=== PATIENT | female | born 1990 | race Caucasian/White ===

== ENCOUNTER 2020-12-25 04:48 | Emergency (ER) | payer OTHER, SELFPAY ==
[2020-12-25 05:22] VITALS: BP 120/74; PULSE 80; O2SAT 98
== END 2020-12-25 06:10 | disposition left against medical advice (07) ==
PROVIDERS: Emergency Provider Emergency Medicine
DX: R52 Pain, unspecified (principal)

== ENCOUNTER 2022-02-23 08:14 | Inpatient (IN) | payer OTHER, SELFPAY ==
--- NOTE | ~2022-02-23 | CT_ITS ---
EXAMINATION: CT ABDOMEN AND PELVIS WITHOUT CONTRAST CLINICAL INFORMATION: Abdominal pain. COMPARISON: CT scans dating between December 14, 2017 and August 28, 2017. TECHNIQUE: Multidetector volumetric imaging was performed from the superior aspect of the liver through the pubic symphysis. Sagittal and coronal reformatted images were obtained on the technologist's workstation. This CT examination was performed using dose optimization techniques as appropriate, variously including the following: *Automated exposure control *Adjustment of mA and/or kV according to patient size (this includes techniques or standardized protocols for targeted exams where dose is matched to indication/reason for exam; i.e. extremities or head) *Use of iterative reconstruction technique DLP: 331 mGy-cm FINDINGS: LUNG BASES: No change in 4 mm or less bilateral lower lobe lung nodules. LIVER, GALLBLADDER, AND BILIARY TREE: Mild hepatomegaly measuring up to approximately 19.5 cm in sagittal dimension, not significantly changed compared with 4 years prior. The liver appears unremarkable in shape and attenuation. No focal hepatic lesion or biliary ductal dilatation is appreciated. Unremarkable appearance of the gallbladder. PANCREAS: Mildly dilated pancreatic duct to the level of the pancreatic head, measuring up to approximately 0.5 cm in diameter. In 2018 it measured approximately 0.4 cm. No stone or mass directly visualized in the pancreatic head. SPLEEN: Unremarkable. ADRENAL GLANDS: Unremarkable. KIDNEYS AND URETERS: Innumerable, approximately 3 mm or less calcifications in the regions of the renal collecting system/papillary, bilaterally. Question mild fullness of the left ureter, equivocal, similar to slightly improved compared with 4 years prior. No desirae hydronephrosis on either side. No evidence of hydroureter on the right. 3 mm, ovoid calcification roughly in the region of the left UVJ. However, this appears unchanged compared with 4 years prior. BLADDER: Unremarkable. GASTROINTESTINAL TRACT: Long segment, concentric thickening involving the distal transverse colon, descending colon, and rectum. Mild induration of surrounding fat. Suspect concentric thickening involving the distal ileum as well. These findings appear worse compared with prior. ABDOMINAL WALL: No significant hernia is appreciated. LYMPH NODES: Normal. VASCULAR: Unremarkable. PELVIC VISCERA: Looped metallic density in the perineal region. Ovarian follicles, left more than right. OSSEOUS STRUCTURES: Unremarkable. CT/CT abdomen pelvis wo con IMPRESSION: Long segment, concentric thickening involving the distal transverse colon, descending colon, and rectum. Suspect concentric thickening involving the distal ileum. Mild induration of surrounding fat. These findings appear worse compared with December 14, 2017. Differential diagnosis includes, but is not limited to, active Crohn's disease. Innumerable, approximately 3 mm or less calcifications in the regions of the renal collecting system/papillary, bilaterally. Question mild fullness of the left ureter, equivocal, similar to slightly improved compared with 4 years prior. 3 mm, ovoid calcification roughly in the region of the left UVJ. However, this appears unchanged compared with 4 years prior, and is therefore felt more likely to represent a phlebolith rather than distal ureteral stone, although the latter cannot be excluded entirely. Looped metallic density in the perineal region. Recommend clinical correlation. This should be amenable to direct visualization.
--- NOTE | 2022-02-23 08:22 | ED.GENADULT ---
HPI - General Adult General Chief complaint: General Medical Stated complaint: BACK PAIN H/O KIDNEY STONES PER EMS Time Seen by Provider: 02/23/22 08:22 Source: patient Mode of arrival: ambulatory Limitations: no limitations History of Present Illness HPI narrative: Patient is a 31 year old female presenting to the emergency department today with left sided flank pain and abdominal pain. Patient states that she has a history of Crohn's disease and kidney stones. Patient states that over the last couple of days, she has had extensive pain that is much worse than usual. Patient states that on February 07, she had a rectal drain placed for a perirectal abscess at [facility] and they started her on Augmentin. Patient denies any dizziness, lightheadedness, nausea, vomiting, fever, chills, blurry vision, double vision, loss of vision, chest pain, difficulty breathing, shortness of breath, back pain, night sweats, pain with urination, increased urinary frequency, increased urinary urgency, blood in her urine or stool, syncope or a near syncopal episode, recent trauma or falls, bowel incontinence, bladder incontinence, bowel retention, bladder retention, or any other complaints at this time. Onset (ago): day(s) Location: abdomen Radiation: flank (left) Severity: mild Severity scale (1-10): 4 Quality: stabbing and constant Pain Consistency: constant Relieving factors: none Exacerbating factors: none Associated symptoms: denies other symptoms Treatments prior to arrival: none Related Data Home Medications Medication Instructions Recorded Confirmed amoxicillin 875 mg-potassium 1 tab PO BID 02/23/22 02/23/22 clavulanate 125 mg tablet calcium carbonate 500 mg-vitamin 6 tab PO DAILY 02/23/22 02/23/22 D3 10 mcg (400 unit) tablet (Calcium 500 + D) docusate sodium 100 mg tablet 100 mg PO DAILY PRN Constipation 02/23/22 02/23/22 levonorgestrel-ethinyl estradiol 1 tab PO DAILY 02/23/22 02/23/22 0.1 mg-20 mcg tablet (Sronyx) oxycodone 5 mg tablet 1 tab PO Q4-6H PRN pain 02/23/22 02/23/22 pantoprazole 40 mg tablet,delayed 1 tab PO DAILY 02/23/22 02/23/22 release prednisone 20 mg tablet 2 tab PO DAILY 02/23/22 02/23/22 ustekinumab 90 mg/mL subcutaneous 90 mg subcut Q4W 02/23/22 02/23/22 syringe (Stelara) Allergies Allergy/AdvReac Type Severity Reaction Status Date / Time NSAIDS (Non-Steroidal AdvReac Unknown Verified 02/23/22 08:23 Anti-Inflamma Review of Systems Constitutional: Constitutional: Reports no additional constitutional complaints, Denies chills, Denies fever(s) and Denies night sweats Eyes: Eyes: Reports no additional eye complaints, Denies blurry vision, Denies change in vision, Denies diplopia, Denies eye discharge, Denies loss of vision and Denies eye pain ENT: Denies dizziness Cardiovascular: Cardiovascular: Reports no additional cardiovascular complaints, Denies chest pain, Denies lightheadedness, Denies Loss of Consciousness and Denies dyspnea Respiratory: Respiratory: Reports no additional respiratory complaints and Denies dyspnea Gastrointestinal: Gastrointestinal: Reports no additional gastrointestinal complaints, Reports abdominal pain, Denies melena, Denies hematochezia, Denies change in bowel habits and Denies change in stool character Comments: left sided flank pain Genitourinary: Genitourinary: Denies hematuria, Denies urinary frequency, Denies dysuria, Denies urinary incontinence, Denies urinary hesitancy and Denies urinary urgency Musculoskeletal: Musculoskeletal: Reports no additional musculoskeletal complaints, Denies numbness and Denies tingling Neurologic: Denies dizziness, Denies loss of vision, Denies numbness and Denies tingling Psychiatric: Psychiatric: Reports no additional psychiatric complaints Endocrine: Endocrine: Reports no additional endocrine complaints Hematologic/Lymphatic: Hematologic/Lymphatic: Reports no additional hematologic/lymphatic complaints Allergic/Immunologic: Allergic/Immunologic: Reports no additional allergic/immunologic complaints [facility] Past Medical History Attestation statement: The following information was validated with the patient. Source: old records reviewed Medical History Crohn's disease Social History Social History Substance Use Type: Marijuana Advance Directives: No Advance Directives Information Provided: No Physical Exam ED Vital Signs: Vital Signs - 24 hr 02/23/22 08:24 02/23/22 11:32 06/22/22 12:09 Temperature 98.1 F Pulse Rate 73 57 65 Respiratory Rate 16 18 18 Blood Pressure 92/57 L 101/56 L 106/67 Pulse Oximetry 96 97 96 Oxygen Delivery Method Room Air Room Air Room Air BMI result Body Mass Index 18.3 Const General: cooperative, no acute distress, alert and awake Nutritional Appearance: well nourished Orientation/consciousness: patient oriented x3 Limitations: no limitations HENMT Head: Yes normal to inspection and Yes atraumatic Ears: hearing grossly normal bilaterally and external ears normal General nose exam: Normal external nose present, no nasal discharge noted and no epistaxis Face and sinus: Yes normal facial exam, No abrasion and No laceration Mouth: Normal oral and palatal mucosa present, no drooling and no muffled voice Eyes General: appearance normal, both eyes and all related structures Periorbital: periorbital findings normal Eyelids: Yes eyelids normal Conjunctivae: conjunctivae normal Pupils: Equal, round and reactive pupils present EOM: EOMs intact bilaterally Neck Neck: Yes normal visual inspection, Yes full ROM and Yes no lymphadenopathy Chest Chest palpation & inspection: normal inspection of the chest Resp Effort & Inspection: normal respiratory effort and able to speak in complete sentences Auscultation: clear to auscultation bilaterally Cardio Rate: regular rate Rhythm: regular rhythm GI Inspection: Yes normal to inspection Palpation (GI): Soft to palpation, not firm, nontender, no guarding and not rigid General: Yes CVA tenderness (left sided) Back/Spine/Pelvis Back: CVA tenderness (left sided) Cervical Spine: normal cervical lordosis and cervical ROM normal Thoracic/Lumbar Spine: thoracic and lumbar spine normal to inspection and thoraco-lumbar ROM normal Neuro General: patient oriented x3 and moves all extremities Cranial nerves: Yes Equal, round and reactive pupils present Cognition (Neuro): normal cognition Motor exam (neuro): 5/5 motor strength present throughout Sensory Exam: Normal double simultaneous stimulation for sensation Coordination: [id number] test normal Extrem General: Yes normal to inspection, Yes full ROM and Yes capillary refill normal Psych Appearance: grossly normal Mental Status: mental status grossly normal Affect: normal affect Attitude: cooperative Thought process: Normal thought process present Thought content: Normal thought content present Insight: Good insight present (Psych) Medical Decision Making MDM Narrative Medical decision making narrative: Patient is a 31 year old female presenting to the emergency department today with left sided flank pain and abdominal pain. Patient's physical exam showed CVA tenderness to the left however, the patient described the pain as radiating back into her abdomen. Patient's blood work showed an elevated white blood cell count at 18.3. Patient's urine showed an acute urinary tract infection. Patient's abdominal CT showed signs of Crohn's disease and scattered renal calculi, both unchanged from previous examinations. I explained my physical exam findings as well as all test results to the patient. I answered all questions asked by the patient. Patient's clinical presentation is most consistent with an acute pyelonephritis vs. colitis / c.diff. Patient received IV Morphine, IV Dilaudid, IV Zofran, IV Flagyl, IV levofloxacin, and IV fluids. Patient's clinical picture was not consistent with sepsis while she was under my care in the emergency department, the patient's lactic acid was normal and at no point was she tachycardic. I spoke to Dr. Trimble who agreed to hospital admission and requested that I place a consult to GI order to expedite that process. Patient verbalized agreement and understanding with this treatment plan and admission. Differential Diagnosis Differential Diagnosis: Colitis, C. diff, pyelonpehritis Medical Records Medical records reviewed: Yes I reviewed the patient's medical records. Lab Data Lab results reviewed: Yes I reviewed the patient's lab results. Result diagrams: 02/23/22 09:06 02/23/22 09:07 Labs: Lab Results 02/23/22 02/23/22 02/23/22 Range/Units 09:06 09:06 09:07 WBC 18.3 H (4.8-10.8) X10*3/uL RBC 4.29 (4.20-5.50) X10*6/uL Hgb 10.8 L (12.0-16.0) g/dl Hct 34.6 L (37.0-47.0) % MCV 80.7 (80.0-98.0) fL MCH 25.2 L (27.0-33.0) pg MCHC 31.2 (31.0-35.0) g/dl RDW 15.1 (11.0-16.0) % Plt Count 454 H (160-400) X10*3/uL MPV 8.4 L (9.4-12.3) fL Immature Gran % (Auto) 1.3 H (0.0-0.4) % Neut % (Auto) 64.9 (45-73) % Lymph % (Auto) 21.7 (20-40) % [place] % (Auto) 10.5 (2-11) % Eos % (Auto) 1.3 (0-4) % Baso % (Auto) 0.3 (0-2) % Lymph # (Auto) 4.0 (1.2-4.9) X10*3/uL Anson # (Auto) 1.9 H (0.1-1.2) X10*3/uL Eos # (Auto) 0.2 (0.0-0.4) X10*3/uL Baso # (Auto) 0.1 (0.0-0.2) X10*3/uL Abs Immat Gran (auto) 0.23 H (0.00-0.03) X10*3/uL Absolute Neuts (auto) 11.9 H (2.0-8.3) x10*3/uL Absolute Nucleated RBC 0.000 (0.0-0.012) X10*3/uL Nucleated RBC % (auto) 0.0 (0.0-0.2) /100WBC Smear Tech's Comments VERIFIED Sodium 138 (135-145) mmol/L Potassium 4.0 (3.3-5.1) mmol/L Chloride 103 (96-108) mmol/L Carbon Dioxide 27 (22-29) mmol/L Anion Gap 12 (12-20) BUN 21 H (9-16) mg/dL Creatinine 0.70 (0.5-1.4) mg/dL Estim Creat Clear Calc 98.4 Estimated GFR > 60 Random Glucose 91 (60-115) mg/dL Lactic Acid (0.5-2.0) mmol/L Calcium 8.8 (8.4-10.2) mg/dL Magnesium 1.8 (1.6-2.6) mg/dL Total Bilirubin 0.2 (0.0-1.0) mg/dL AST 8 (5-31) U/L ALT 7 (0-31) U/L Alkaline Phosphatase 68 (39-117) U/L Total Protein 6.4 L (6.5-8.0) g/dL Albumin 3.3 L (3.5-5.0) g/dL Beta HCG, Quant < 2 mIU/mL Urine Color Urine Appearance Urine pH (5.0-8.0) Ur Specific [place] (1.005-1.025) Urine Protein (NEG-TRACE) MG/DL Urine Glucose (UA) (NEG) MG/DL Urine Ketones (NEG) MG/DL Urine Blood (NEG) Urine Nitrite (NEG) Ur Leukocyte Esterase (NEG) Urine RBC (0) /HPF Urine WBC (0-4) /HPF Ur Squamous Epith Cells /LPF Urine Bacteria /LPF Urine Mucus /LPF COVID-19 (PRIYANK) (Negative) COVID-19 Clin Com 02/23/22 02/23/22 02/23/22 Range/Units 11:29 12:07 12:47 WBC (4.8-10.8) X10*3/uL RBC (4.20-5.50) X10*6/uL Hgb (12.0-16.0) g/dl Hct (37.0-47.0) % MCV (80.0-98.0) fL MCH (27.0-33.0) pg MCHC (31.0-35.0) g/dl RDW (11.0-16.0) % Plt Count (160-400) X10*3/uL MPV (9.4-12.3) fL Immature Gran % (Auto) (0.0-0.4) % Neut % (Auto) (45-73) % Lymph % (Auto) (20-40) % Anson % (Auto) (2-11) % Eos % (Auto) (0-4) % Baso % (Auto) (0-2) % Lymph # (Auto) (1.2-4.9) X10*3/uL Anson # (Auto) (0.1-1.2) X10*3/uL Eos # (Auto) (0.0-0.4) X10*3/uL Baso # (Auto) (0.0-0.2) X10*3/uL Abs Immat Gran (auto) (0.00-0.03) X10*3/uL Absolute Neuts (auto) (2.0-8.3) x10*3/uL Absolute Nucleated RBC (0.0-0.012) X10*3/uL Nucleated RBC % (auto) (0.0-0.2) /100WBC Smear Tech's Comments Sodium (135-145) mmol/L Potassium (3.3-5.1) mmol/L Chloride (96-108) mmol/L Carbon Dioxide (22-29) mmol/L Anion Gap (12-20) BUN (9-16) mg/dL Creatinine (0.5-1.4) mg/dL Estim Creat Clear Calc Estimated GFR Random Glucose (60-115) mg/dL Lactic Acid 1.4 (0.5-2.0) mmol/L Calcium (8.4-10.2) mg/dL Magnesium (1.6-2.6) mg/dL Total Bilirubin (0.0-1.0) mg/dL AST (5-31) U/L ALT (0-31) U/L Alkaline Phosphatase (39-117) U/L Total Protein (6.5-8.0) g/dL Albumin (3.5-5.0) g/dL Beta HCG, Quant mIU/mL Urine Color YELLOW Urine Appearance CLEAR Urine pH 6.0 (5.0-8.0) Ur Specific [place] 1.020 (1.005-1.025) Urine Protein NEG (NEG-TRACE) MG/DL Urine Glucose (UA) NEG (NEG) MG/DL Urine Ketones NEG (NEG) MG/DL Urine Blood 3+ H (NEG) Urine Nitrite NEG (NEG) Ur Leukocyte Esterase TRACE H (NEG) Urine RBC 10-14 H (0) /HPF Urine WBC 10-14 H (0-4) /HPF Ur Squamous Epith Cells 2+ /LPF Urine Bacteria NONE /LPF Urine Mucus TRACE /LPF COVID-19 (PRIYANK) Negative (Negative) COVID-19 Clin Com See Note Imaging Data CT scan - abdomen: Attestation: I personally reviewed and interpreted this imaging study as follows: My impression: Crohns, scattered renal calculi. Radiologist's impression: EXAMINATION: CT ABDOMEN AND PELVIS WITHOUT CONTRAST? CLINICAL INFORMATION: Abdominal pain.? COMPARISON: CT scans dating between December 14, 2017 and August 28, 2017.? TECHNIQUE: Multidetector volumetric imaging was performed from the superior aspect of the liver through the pubic symphysis. Sagittal and coronal reformatted images were obtained on the technologist's workstation.? This CT examination was performed using dose optimization techniques as appropriate, variously including the following: *Automated exposure control *Adjustment of mA and/or kV according to patient size (this includes techniques or standardized protocols for targeted exams where dose is matched to indication/reason for exam; i.e. extremities or head) *Use of iterative reconstruction technique DLP: 331 mGy-cm FINDINGS: LUNG BASES: No change in 4 mm or less bilateral lower lobe lung nodules.? LIVER, GALLBLADDER, AND BILIARY TREE: Mild hepatomegaly measuring up to approximately 19.5 cm in sagittal dimension, not significantly changed compared with 4 years prior. The liver appears unremarkable in shape and attenuation. No focal hepatic lesion or biliary ductal dilatation is appreciated. Unremarkable appearance of the gallbladder.? PANCREAS: Mildly dilated pancreatic duct to the level of the pancreatic head, measuring up to approximately 0.5 cm in diameter. In 2018 it measured approximately 0.4 cm. No stone or mass directly visualized in the pancreatic head. SPLEEN: Unremarkable.? ADRENAL GLANDS: Unremarkable.? KIDNEYS AND URETERS: Innumerable, approximately 3 mm or less calcifications in the regions of the renal collecting system/papillary, bilaterally. Question mild fullness of the left ureter, equivocal, similar to slightly improved compared with 4 years prior. No desirae hydronephrosis on either side. No evidence of hydroureter on the right. 3 mm, ovoid calcification roughly in the region of the left UVJ. However, this appears unchanged compared with 4 years prior. BLADDER: Unremarkable.? GASTROINTESTINAL TRACT: Long segment, concentric thickening involving the distal transverse colon, descending colon, and rectum. Mild induration of surrounding fat. Suspect concentric thickening involving the distal ileum as well. These findings appear worse compared with prior. ABDOMINAL WALL: No significant hernia is appreciated.? LYMPH NODES: Normal. VASCULAR: Unremarkable. PELVIC VISCERA: Looped metallic density in the perineal region. Ovarian follicles, left more than right. OSSEOUS STRUCTURES: Unremarkable.? CT/CT abdomen pelvis wo con IMPRESSION: ? Long segment, concentric thickening involving the distal transverse colon, descending colon, and rectum. Suspect concentric thickening involving the distal ileum. Mild induration of surrounding fat. These findings appear worse compared with December 14, 2017. Differential diagnosis includes, but is not limited to, active Crohn's disease. ? Innumerable, approximately 3 mm or less calcifications in the regions of the renal collecting system/papillary, bilaterally. Question mild fullness of the left ureter, equivocal, similar to slightly improved compared with 4 years prior. 3 mm, ovoid calcification roughly in the region of the left UVJ. However, this appears unchanged compared with 4 years prior, and is therefore felt more likely to represent a phlebolith rather than distal ureteral stone, although the latter cannot be excluded entirely. ? Looped metallic density in the perineal region. Recommend clinical correlation. This should be amenable to direct visualization. Dictated By: Сергей Morrissey Signed By: Electronically signed by Сергей Morrissey 02/23/22 0620 Critical Care Time Critical Care Time Critical Care Time: Yes Total Critical Care Time: 30 Attestation: I spent 30 minutes of Critical Care Time with this patient. This does not include time spent on separately reported billable procedures. Discharge Plan Discharge Clinical Impression: Pyelonephritis, Crohn's disease, Crohn's colitis Patient Disposition: Admitted As Inpatient Prescriptions: No Action levonorgestrel-ethinyl estrad [Sronyx] 0.1-20 mg-mcg tablet 1 tab PO DAILY prednisone 20 mg tablet 2 tab PO DAILY pantoprazole 40 mg tablet,delayed release (DR/EC) 1 tab PO DAILY amoxicillin-pot clavulanate 875-125 mg tablet 1 tab PO BID oxycodone 5 mg tablet 1 tab PO Q4-6H PRN (Reason: pain) calcium carbonate-vitamin D3 [Calcium 500 + D] 500 mg-10 mcg (400 unit) Tablet 6 tab PO DAILY Stelara 90 mg/mL syringe 90 mg subcut Q4W docusate sodium 100 mg Tablet 100 mg PO DAILY PRN (Reason: Constipation) Print Language: Kazakh
[2022-02-23 08:24] VITALS: BP 106/70; BP 92/57; PULSE 73; PULSE 74; RESP 16; TEMP 36.7; O2SAT 96; O2SAT 99; BMI 18.3
[2022-02-23 09:21] LABS: Basophils Absolute Auto 0.1 X10*3/uL (0.0-0.2); Basophils Percent Auto 0.3 % (0-2); Eosinophils Absolute Auto 0.2 X10*3/uL (0.0-0.4); Eosinophils Percent Auto 1.3 % (0-4); Hematocrit 34.6 % (37.0-47.0); Hemoglobin 10.8 g/dl (12.0-16.0); Imm Gran Abs Auto 0.23 X10*3/uL (0.00-0.03); Imm Gran Pct Auto 1.3 % (0.0-0.4); Lymphocytes Percent Auto 21.7 % (20-40); MANUAL DIFF FLAG SCAN; Mean Corpuscular HGB Conc 31.2 g/dl (31.0-35.0); Mean Corpuscular Hemoglobin 25.2 pg (27.0-33.0); Mean Corpuscular Volume 80.7 fL (80.0-98.0); Mean Platelet Volume 8.4 fL (9.4-12.3); Monocytes Absolute Auto 1.9 X10*3/uL (0.1-1.2); Monocytes Percent Auto 10.5 % (2-11); Neutrophils Absolute Auto 11.9 x10*3/uL (2.0-8.3); Neutrophils Percent Auto 64.9 % (45-73); Platelet Count 454 X10*3/uL (160-400); Red Blood Count 4.29 X10*6/uL (4.20-5.50); Red Cell Distribution Width 15.1 % (11.0-16.0); SCAN SMEAR FLAG 1; White Blood Count 18.3 X10*3/uL (4.8-10.8)
[2022-02-23 09:34] LABS: Alanine Aminotransferase 7 U/L (0-31); Albumin Level 3.3 g/dL (3.5-5.0); Alkaline Phosphatase 68 U/L (39-117); Anion Gap 12 (12-20); Aspartate Amino Transferase 8 U/L (5-31); Bilirubin Total 0.2 mg/dL (0.0-1.0); Blood Urea Nitrogen 21 mg/dL (9-16); Calcium 8.8 mg/dL (8.4-10.2); Carbon Dioxide 27 mmol/L (22-29); Chloride 103 mmol/L (96-108); Creatinine Clr Calc Pharmacy 98.4; Estimated Glomerular Filt Rate > 60; Glucose Random 91 mg/dL (60-115); Magnesium 1.8 mg/dL (1.6-2.6); Sodium 138 mmol/L (135-145); Total Protein 6.4 g/dL (6.5-8.0)
[2022-02-23] MEDS: Morphine Sulfate 4 MG/ML CARTRIDGE IVPUSH (09:35)
[2022-02-23] MEDS: 0.9 % Sodium Chloride 1,000 ML 999 ML IVCONT (09:35)
[2022-02-23] MEDS: ondansetron HCL 4 MG/2 ML VIAL IVPUSH ×2 (09:35→16:00)
[2022-02-23 09:41] LABS: HCG Quantitative < 2 mIU/mL
[2022-02-23 09:42] LABS: SLIDE REVIEW VERIFIED
[2022-02-23 11:32] VITALS: BP 101/56; PULSE 57; RESP 18; O2SAT 97
[2022-02-23 11:38] LABS: Appearance Urine CLEAR; Color Urine YELLOW; Glucose Urine UA NEG (NEG); Leukocyte Esterase Urine TRACE (NEG); Nitrite Urine NEG (NEG); UACC Culture Trigger NO; Urine Blood 3+ (NEG); Urine Ketones NEG (NEG); Urine Protein NEG (NEG-TRACE)
[2022-02-23 11:45] LABS: Mucus Urine TRACE /LPF; Squamous Epithelial Cell Urine 2+ /LPF; UACC CULT YES
[2022-02-23 12:09] VITALS: BP 106/67; PULSE 65; RESP 18; O2SAT 96
[2022-02-23 12:34] LABS: Lactic Acid 1.4 mmol/L (0.5-2.0)
[2022-02-23] MEDS: HYDROmorphone HCl 1 MG/ML SYRINGE IVPUSH (12:58)
[2022-02-23] MEDS: metroNIDAZOLE/NS 500 MG/100 ML PIGGYBACK 100 MG IV (12:59)
[2022-02-23 13:08] LABS: COVID-19 Test Negative (Negative)
--- NOTE | 2022-02-23 13:36 | PHA.MEDREC ---
Pharmacy Consult ? Medication Reconciliation Pharmacy has completed the medication reconciliation. Patient reports taking 3,000 mg of calcium and use a combo alcium-vit D3 tablet. Patient reports she is trying to be switched off sterla. Patient has not taken any medications this morning. Afia Rosa, PharmD
[2022-02-23] MEDS: levoFLOXacin/D5W 750 MG/150 ML PIGGYBACK 100 MG IV (14:09)
--- NOTE | 2022-02-23 14:19 | P.HPHOSP_ITS ---
History of Present Illness Date of Service: 02/23/22 Chief Complaint: back pain 31-year-old woman with a history of Crohn's disease presenting to the ER with left-sided flank pain that started suddenly this morning. She reported poor appetite with no nausea, vomiting, fever, chills. She was recently in [facility] in February of 2022 for perianal fistula/ abscess repair for Seton placement. She denies any changes in her Crohn's at present. From what she describes she had been on Remicade for 10 years and was in remission but developed antibodies and had to be taken off of it once she developed a fistula. She recently was started on Stelara but has not completed treatments. Her symptoms described left-sided flank pain and few days ago was having some dysuria. She reports due to the fistula she is doing a lot of Sitz baths and maybe there has been some cross contamination. . In the ER she is noted to have an elevated white blood cell count of 18.3, positive urinalysis, COVID negative, abdominal and pelvic CT showing her Crohn's disease with chronic stones, vital signs. She was given IV fluids, morphine, Zofran, Dilaudid, Flagyl, Levaquin in the ER. To be admitted for further management and treatment of acute pyelonephritis. Review of Systems Review of Systems: Denies any recent fever chills or decrease in appetite respiratory denies any shortness of breath coverage production cardiovascular denies chest pain gastrointestinal denies any dysphagia abdominal pain nausea vomiting or d iarrhea, flank pain genitourinary denies any dysuria frequency or hematuria musculoskeletal left flank pain neuropsych denies any weakness or seizures all other systems reviewed are negative [facility] Medical History (Updated 02/23/22 @ 14:26 by Luz Hill NP) Crohn's disease Rectal fistula Pertinent family history: Denies cardiac disease Social History Substance Use Type: Marijuana Advance Directives: No Advance Directives Information Provided: No Meds Allergies Allergy/AdvReac Type Severity Reaction Status Date / Time NSAIDS (Non-Steroidal AdvReac Unknown Verified 02/23/22 08:23 Anti-Inflamma Active Medications: Current Medications Acetaminophen (Acetaminophen 325 Mg Tablet) 650 mg PO Q6H PRN PRN Reason: Pain, Mild (Pain Scale 1-3) Ceftriaxone Sodium 1 gm/ (Sodium Chloride) 50 mls @ 100 mls/hr IV Q24H [facility] Ondansetron HCl (Ondansetron Hcl 4 Mg/2 Ml Vial) 4 mg IVPUSH Q8H PRN PRN Reason: Nausea and Vomiting Pharmacy Consult (Consult Rx Perform Med Rec) 1 each MISCELLANE ONCE PRN PRN Reason: Consult order Sodium Chloride (0.9 % Sodium Chloride Flush 3 Ml Syringe) 3 ml IVFLUSH QSHIFT [facility] Home Medications Medication Instructions Recorded Confirmed Last Taken Type amoxicillin 875 mg-potassium 1 tab PO BID 02/23/22 02/23/22 02/22/22 History clavulanate 125 mg tablet calcium carbonate 500 mg-vitamin 6 tab PO DAILY 02/23/22 02/23/22 02/22/22 History D3 10 mcg (400 unit) tablet (Calcium 500 + D) docusate sodium 100 mg tablet 100 mg PO DAILY PRN Constipation 02/23/22 02/23/22 Unknown History levonorgestrel-ethinyl estradiol 1 tab PO DAILY 02/23/22 02/23/22 02/22/22 History 0.1 mg-20 mcg tablet (Sronyx) oxycodone 5 mg tablet 1 tab PO Q4-6H PRN pain 02/23/22 02/23/22 Unknown History pantoprazole 40 mg tablet,delayed 1 tab PO DAILY 02/23/22 02/23/22 02/22/22 History release prednisone 20 mg tablet 2 tab PO DAILY 02/23/22 02/23/22 02/22/22 History ustekinumab 90 mg/mL subcutaneous 90 mg subcut Q4W 02/23/22 02/23/22 02/01/22 History syringe (Stelara) Physical Exam Vital Signs and Narrative: Vital Signs: Last Vital Signs Temp 98.1 F 02/23/22 08:24 Pulse 65 02/23/22 12:09 Resp 18 02/23/22 12:09 BP 106/67 02/23/22 12:09 Pulse Ox 96 02/23/22 12:09 O2 Del Method 02/23/22 12:09 BMI result Body Mass Index 18.3 Results Labs CBC and Chem 7: 02/23/22 09:06 02/23/22 09:07 Labs: Laboratory Results - last 24 hr 02/23/22 02/23/22 02/23/22 09:06 09:06 09:07 MCV 80.7 MCH 25.2 L MCHC 31.2 RDW 15.1 Plt Count 454 H MPV 8.4 L Immature Gran % (Auto) 1.3 H Neut % (Auto) 64.9 Lymph % (Auto) 21.7 Reeves % (Auto) 10.5 Eos % (Auto) 1.3 Baso % (Auto) 0.3 Lymph # (Auto) 4.0 Reeves # (Auto) 1.9 H Eos # (Auto) 0.2 Baso # (Auto) 0.1 Abs Immat Gran (auto) 0.23 H Absolute Neuts (auto) 11.9 H Absolute Nucleated RBC 0.000 Nucleated RBC % (auto) 0.0 Smear Tech's Comments VERIFIED Anion Gap 12 Estim Creat Clear Calc 98.4 Estimated GFR > 60 Random Glucose 91 Lactic Acid Calcium 8.8 Magnesium 1.8 Total Bilirubin 0.2 AST 8 ALT 7 Alkaline Phosphatase 68 Total Protein 6.4 L Albumin 3.3 L Beta HCG, Quant < 2 Urine Color Urine Appearance Urine pH Ur Specific [place] Urine Protein Urine Glucose (UA) Urine Ketones Urine Blood Urine Nitrite Ur Leukocyte Esterase Urine RBC Urine WBC Ur Squamous Epith Cells Urine Bacteria Urine Mucus COVID-19 ([facility]) COVID-19 Clin Com 02/23/22 02/23/22 02/23/22 11:29 12:07 12:47 MCV MCH MCHC RDW Plt Count MPV Immature Gran % (Auto) Neut % (Auto) Lymph % (Auto) Reeves % (Auto) Eos % (Auto) Baso % (Auto) Lymph # (Auto) Reeves # (Auto) Eos # (Auto) Baso # (Auto) Abs Immat Gran (auto) Absolute Neuts (auto) Absolute Nucleated RBC Nucleated RBC % (auto) Smear Tech's Comments Anion Gap Estim Creat Clear Calc Estimated GFR Random Glucose Lactic Acid 1.4 Calcium Magnesium Total Bilirubin AST ALT Alkaline Phosphatase Total Protein Albumin Beta HCG, Quant Urine Color YELLOW Urine Appearance CLEAR Urine pH 6.0 Ur Specific [place] 1.020 Urine Protein NEG Urine Glucose (UA) NEG Urine Ketones NEG Urine Blood 3+ H Urine Nitrite NEG Ur Leukocyte Esterase TRACE H Urine RBC 10-14 H Urine WBC 10-14 H Ur Squamous Epith Cells 2+ Urine Bacteria NONE Urine Mucus TRACE COVID-19 (PRIYANK) Negative COVID-19 Clin Com See Note Imaging Radiologist's Impressions: Impressions Abdomen/Pelvis CT 02/23/22 10:00 IMPRESSION: Long segment, concentric thickening involving the distal transverse colon, descending colon, and rectum. Suspect concentric thickening involving the distal ileum. Mild induration of surrounding fat. These findings appear worse compared with December 14, 2017. Differential diagnosis includes, but is not limited to, active Crohn's disease. Innumerable, approximately 3 mm or less calcifications in the regions of the renal collecting system/papillary, bilaterally. Question mild fullness of the left ureter, equivocal, similar to slightly improved compared with 4 years prior. 3 mm, ovoid calcification roughly in the region of the left UVJ. However, this appears unchanged compared with 4 years prior, and is therefore felt more likely to represent a phlebolith rather than distal ureteral stone, although the latter cannot be excluded entirely. Looped metallic density in the perineal region. Recommend clinical correlation. This should be amenable to direct visualization. Assessment and Plan (1) Pyelonephritis: Status: Acute Plan 31-year-old woman admitted with acute pyelonephritis with no change in her Crohn's diseasesymptoms. Acute pyelonephritis Rocephin Follow blood and urine cultures Supportive care IV fluids Leukocytosis. Secondary to pyelonephritis History of Crohn's disease Does not appear to be in acute exacerbation as patient denies any changes in her symptoms On Stelara DVT prophylaxis with early ambulation Attending Dr. Rivera Full code Patient likely requires 2 midnights in the hospital for treatment of acute pyelonephritis with IV antibiotics, pain medication Quality Stroke Does the patient have a stroke diagnosis?: No VTE Prior VTE?: No VTE Risk Level:: Medical - low VTE Device Contraindication: Treatment Not Indicated VTE Drug Contraindication: Treatment Not Indicated
[2022-02-23] MEDS: cefTRIAXone sodium 1 GM in 0.9 % Sodium Chloride 50 ML IV (15:55)
[2022-02-23] MEDS: Acetaminophen 325 MG TABLET 650 MG PO (18:49)
[2022-02-23 20:15] VITALS: BP 98/48; PULSE 71; RESP 20; TEMP 36.3; O2SAT 98
--- NOTE | 2022-02-23 20:34 | PC.NURSE ---
pt c/o pain at IV site. IV site assessed, no inflitrate or adverse reaction, pt screaming when this RN got near IV c/o tenderness. IV d/c'd unsuccessful attempt to RAC, upon second attempt pt getting herself worked up crying and stating i dont like needles. IV flashed blood return and patient pulled arm away. IV infiltrated. pt agitated and upset yelling, no fuck this, im leaving. get me a doctor who can discharge me. no one else is stabbing me this RN apologized, and explained that we had it until she pulled away. pt continues to cry and states, its fine i guess pt asked if she would be willing to let another RN try. pt stated what choice do I have. pt reassured that she has full capacity to make her own decisions r/t her care
--- NOTE | 2022-02-23 21:08 | PC.NURSE ---
while waiting for another RN to attempt to start an IV line pt began getting further agitated stating that she wants to leave now, shes not being treated. pt was offered PO pain medication immediatley after 2nd unsuccessful attempt to which she refused. RN here to start second IV. pt states, dont put it in the hand
[2022-02-23] MEDS: oxyCODONE HCl Immed Release 5 MG TABLET PO (21:21)
--- NOTE | 2022-02-23 21:37 | PC.NURSE ---
pt ambulated to BR with steady gait. requesting melatonin to help her sleep.
[2022-02-23] MEDS: Melatonin 3 MG TABLET 6 MG PO (21:41)
[2022-02-23] MEDS: 0.9 % Sodium Chloride Flush 3 ML SYRINGE IVFLUSH (23:12)
[2022-02-24] VITALS: BP 95/83; PULSE 71; RESP 18; TEMP 36.6; O2SAT 96
--- NOTE | 2022-02-24 01:30 | PC.NURSE ---
pt ambulated to BR to void with steady gait
[2022-02-24] MEDS: ondansetron HCL 4 MG/2 ML VIAL IVPUSH (03:40)
[2022-02-24] MEDS: oxyCODONE HCl Immed Release 5 MG TABLET PO ×3 (03:41→20:41)
[2022-02-24 05:09] LABS: MANUAL DIFF FLAG NO
[2022-02-24 05:10] LABS: Basophils Percent Auto 0.2 % (0-2); Eosinophils Percent Auto 0.1 % (0-4); Hematocrit 35.6 % (37.0-47.0); Hemoglobin 11.4 g/dl (12.0-16.0); Imm Gran Abs Auto 0.17 X10*3/uL (0.00-0.03); Imm Gran Pct Auto 0.9 % (0.0-0.4); Lymphocytes Absolute Auto 1.5 X10*3/uL (1.2-4.9); Lymphocytes Percent Auto 7.8 % (20-40); Mean Corpuscular Hemoglobin 25.6 pg (27.0-33.0); Mean Platelet Volume 8.9 fL (9.4-12.3); Monocytes Absolute Auto 0.4 X10*3/uL (0.1-1.2); Monocytes Percent Auto 2.2 % (2-11); Neutrophils Absolute Auto 16.5 x10*3/uL (2.0-8.3); Neutrophils Percent Auto 88.8 % (45-73); Platelet Count 439 X10*3/uL (160-400); Red Blood Count 4.45 X10*6/uL (4.20-5.50); White Blood Count 18.6 X10*3/uL (4.8-10.8)
[2022-02-24 05:26] LABS: Anion Gap 14 (12-20); Blood Urea Nitrogen 11 mg/dL (9-16); Calcium 9.3 mg/dL (8.4-10.2); Carbon Dioxide 25 mmol/L (22-29); Chloride 100 mmol/L (96-108); Creatinine Clr Calc Pharmacy 109.3; Estimated Glomerular Filt Rate > 60; Glucose Random 112 mg/dL (60-115); Potassium 4.8 mmol/L (3.3-5.1); Sodium 134 mmol/L (135-145)
[2022-02-24] MEDS: Omeprazole 20 MG CAPSULE.DR PO (06:38)
[2022-02-24] MEDS: Cholecalciferol (Vitamin D3) 25 MCG TABLET PO (08:21)
[2022-02-24] MEDS: predniSONE 20 MG TABLET 40 MG PO (08:21)
[2022-02-24 09:46] VITALS: BP 91/60; PULSE 59; RESP 15; TEMP 36.7; O2SAT 98
[2022-02-24] MEDS: Acetaminophen 325 MG TABLET 650 MG PO ×3 (09:54→22:59)
--- NOTE | 2022-02-24 09:57 | P.EN_ITS ---
Event Note Date of Service: 02/24/22 Event Note: GI consult dictated Crohns colitis appears stable she is starting Humira and has f/u with primary GI in [place]. Continue steroids.
--- NOTE | 2022-02-24 11:19 | CONS_ITS ---
DATE OF SERVICE: 02/24/2022 REFERRING PHYSICIAN: Luz Hill NP REASON FOR CONSULTATION: Crohn disease. HISTORY OF PRESENT ILLNESS: The patient is a pleasant 31-year-old woman with a longstanding history of Crohn disease involving the colon, who was admitted to the hospital on February 23 because of pyelonephritis. Consultation is requested regarding the patient's history of Crohn disease. She has a longstanding history of Crohn disease since age 13 and by her report, this appears to involve mainly the colon. She has been on various agents and is currently being started on Humira after long-term Remicade use, which had to be switched to Stelara because of antibody formation. She has been followed by Dr. Johnson at the [facility] and has been on prednisone recently because of lack of efficacy of Stelara. She just got approved for Humira and is in the process of beginning this. She reports her bowel pattern is about 3 loose stools per day. She has some blood, but relates this to recently having had a Seton placed because of fistulizing disease around the anus. PAST MEDICAL HISTORY: 1. Crohn disease as above. 2. Pyelonephritis. 3. Nephrolithiasis. CURRENT MEDICATIONS: Her current medication list is reviewed in the chart. ALLERGIES: SHE HAS BEEN INTOLERANT OF NSAIDS. FAMILY HISTORY: Positive for Crohn disease in her father. SOCIAL HISTORY: There is no current tobacco or alcohol abuse. She is a student and uses marijuana fairly regularly. REVIEW OF SYSTEMS: SKIN: No pruritus. HEENT: Negative. CARDIOPULMONARY: No shortness of breath or chest pain. GASTROINTESTINAL: As above. GENITOURINARY: Negative. NEUROPSYCHIATRIC: Negative. PHYSICAL EXAMINATION: GENERAL: Shows a pleasant female, lying comfortably in bed. VITAL SIGNS: Reviewed in electronic medical record and are stable. SKIN: Anicteric. HEENT: Shows no scleral icterus. NECK: Without lymphadenopathy or thyromegaly. LUNGS: Clear. HEART: Shows regular rate and rhythm. S1, S2. No murmur. ABDOMEN: Soft without focal masses or tenderness. Bowel sounds are present. No organomegaly is noted. EXTREMITIES: Without edema. LABORATORY DATA: Shows a white blood cell count of 18.6, hematocrit 35.6, platelet count 439. CT scanning of the abdomen and pelvis was obtained on admission and is reviewed. This shows Crohn disease, which appears changes consistent with Crohn disease, which appears to mainly involve the colon. IMPRESSION: Crohn disease. At this point, she appears stable. I would recommend continuing her oral steroids. She is in the process of starting Humira and this will be arranged through her primary GI with whom she has followup already scheduled. Thanks for asking me to see her. I will follow her in the hospital as needed. MD ANGEL Noel/COMFORT / [phone]
--- NOTE | 2022-02-24 13:23 | HO.PM.IMPN ---
Subjective Subjective Date of Service: 02/24/22 Interval History: Seen and examined this morning Follow-up for flank pain Patient reports ongoing left flank pain. No fever, chills abdominal pain, nausea. Denies dysuria at this time Review of Systems Review of Systems: Yes all other systems are reviewed and are negative Constitutional Constitutional: Denies chills and Denies fever(s) Cardiovascular Cardiovascular: Denies chest pain, Denies palpitations and Denies dyspnea Respiratory Respiratory: Denies cough and Denies dyspnea Gastrointestinal Gastrointestinal: Denies diarrhea, Denies nausea and Denies vomiting Endocrine Endocrine: Denies palpitations Physical Exam Vital Signs: Vital Signs: Last Vital Signs Temp 98.1 F 02/24/22 09:46 Pulse 59 02/24/22 09:46 Resp 15 02/24/22 09:46 BP 91/60 02/24/22 09:46 Pulse Ox 98 02/24/22 09:46 O2 Del Method 02/24/22 09:46 BMI result Body Mass Index 18.3 Const: General: cooperative, comfortable, alert and awake Nutritional Appearance: average body habitus Orientation/consciousness: patient oriented x3 Resp: Effort & Inspection: normal respiratory effort and able to speak in complete sentences Auscultation: clear to auscultation bilaterally Cardio: Rate: regular rate Heart sounds: S1 normal heart sound present and S2 normal heart sound present GI: Inspection: No distended Palpation (GI): Soft to palpation : Other: left CVAT Neuro: General: patient oriented x3 Extrem: General: Yes no pedal edema Objective Data Active Medications Acetaminophen (Acetaminophen 325 Mg Tablet) 650 mg PO Q6H PRN PRN Reason: Pain, Mild (Pain Scale 1-3) Last Admin: 02/24/22 09:54 Dose: 650 mg Documented By: JAZZ Calcium Carbonate (Calcium Carbonate 500 Mg Tablet) 3,000 mg PO DAILY [facility] Last Admin: 02/24/22 10:48 Dose: Not Given Documented By: JAZZ Non-Admin Reason: Med Not Available Docusate Sodium (Docusate Sodium 100 Mg Capsule) 100 mg PO DAILY PRN PRN Reason: Constipation Ceftriaxone Sodium 1 gm/ (Sodium Chloride) 50 mls @ 100 mls/hr IV Q24H [facility] Last Infusion: 02/23/22 17:12 Dose: 0 mls/hr Documented By: BRIDGET Melatonin (Melatonin 3 Mg Tablet) 6 mg PO BEDTIME PRN PRN Reason: Insomnia Last Admin: 02/23/22 21:41 Dose: 6 mg Documented By: AMBER Non-Formulary Medication (Levonorgestrel-Ethinyl Estrad [Sronyx]) 1 tab PO DAILY [facility] Omeprazole (Omeprazole 20 Mg Capsule.Dr) 20 mg PO DAILY@0630 [facility] Last Admin: 02/24/22 06:38 Dose: 20 mg Documented By: AMBER Ondansetron HCl (Ondansetron Hcl 4 Mg/2 Ml Vial) 4 mg IVPUSH Q8H PRN PRN Reason: Nausea and Vomiting Last Admin: 02/24/22 03:40 Dose: 4 mg Documented By: AMBER Oxycodone HCl (Oxycodone Hcl Immed Release 5 Mg Tablet) 5 mg PO Q6H PRN PRN Reason: Breakthrough Pain Last Admin: 02/24/22 09:54 Dose: 5 mg Documented By: JAZZ Pharmacy Consult (Consult Rx Perform Med Rec) 1 each MISCELLANE ONCE PRN PRN Reason: Consult order Prednisone (Prednisone 20 Mg Tablet) 40 mg PO DAILY [facility] Last Admin: 02/24/22 08:21 Dose: 40 mg Documented By: JAZZ Sodium Chloride (0.9 % Sodium Chloride Flush 3 Ml Syringe) 3 ml IVFLUSH QSHIFT [facility] Last Admin: 02/24/22 09:17 Dose: Not Given Documented By: JAZZ Non-Admin Reason: Previously Administered Vitamin D (Cholecalciferol (Vitamin D3) 25 Mcg Tablet) 25 mcg PO DAILY [facility] Last Admin: 02/24/22 08:21 Dose: 25 mcg Documented By: JAZZ Labs CBC & Chem 7: 02/24/22 04:03 02/24/22 04:03 Labs: Laboratory Results - last 24 hr 02/24/22 02/24/22 04:03 04:03 MCV 80.0 MCH 25.6 L MCHC 32.0 RDW 15.0 Plt Count 439 H MPV 8.9 L Immature Gran % (Auto) 0.9 H Neut % (Auto) 88.8 H Lymph % (Auto) 7.8 L [place] % (Auto) 2.2 Eos % (Auto) 0.1 Baso % (Auto) 0.2 Lymph # (Auto) 1.5 [place] # (Auto) 0.4 Eos # (Auto) 0.0 Baso # (Auto) 0.0 Abs Immat Gran (auto) 0.17 H Absolute Neuts (auto) 16.5 H Absolute Nucleated RBC 0.000 Nucleated RBC % (auto) 0.0 Anion Gap 14 Estim Creat Clear Calc 109.3 Estimated GFR > 60 Random Glucose 112 Calcium 9.3 Assessment and Plan (1) Pyelonephritis: Status: Acute (2) Crohn's disease: Status: Acute Plan 31-year-old woman admitted with acute pyelonephritis with no change in her Crohn's disease symptoms. Acute pyelonephritis No fever, chills, dysuria. CT abdomen pelvis showing no acute changes ua with no bacteria - possibly due to recent abx use Continue IV Rocephin d#2 Follow blood and urine cultures Supportive care Leukocytosis. 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 Jenkins Full code Requires ongoing inpatient hospitalization for treatment of acute pyelonephritis with IV antibiotics, pain medication Quality Stroke Does the patient have a stroke diagnosis?: No VTE Prior VTE?: No VTE Risk Level:: Medical - low VTE Device Contraindication: Treatment Not Indicated VTE Drug Contraindication: Treatment Not Indicated
[2022-02-24] MEDS: cefTRIAXone sodium 1 GM in 0.9 % Sodium Chloride 50 ML IV (14:25)
[2022-02-24 14:28] VITALS: BP 116/70; PULSE 73; RESP 16; TEMP 36.9; O2SAT 96
[2022-02-24] MEDS: Morphine Sulfate 2 MG/ML CARTRIDGE IVPUSH (15:12)
[2022-02-24] MEDS: 0.9 % Sodium Chloride Flush 3 ML SYRINGE IVFLUSH ×2 (15:13→23:00)
[2022-02-24 15:35] VITALS: BP 111/60; PULSE 66; RESP 16; TEMP 36.8; O2SAT 98
[2022-02-24 19:16] VITALS: BP 117/71; PULSE 70; RESP 18; TEMP 36.8; O2SAT 98
[2022-02-24] MEDS: Melatonin 3 MG TABLET 6 MG PO (23:00)
[2022-02-24 23:55] VITALS: BP 108/60; PULSE 54; RESP 16; TEMP 37.1; O2SAT 98
[2022-02-25] MEDS: oxyCODONE HCl Immed Release 5 MG TABLET PO ×2 (02:42→07:48)
[2022-02-25 03:07] VITALS: BP 121/76; PULSE 75; RESP 16; TEMP 36.5; O2SAT 98
[2022-02-25] MEDS: Omeprazole 20 MG CAPSULE.DR PO (05:39)
[2022-02-25] MEDS: Acetaminophen 325 MG TABLET 650 MG PO (05:39)
[2022-02-25 07:22] VITALS: BP 120/69; PULSE 82; RESP 18; TEMP 36.5; O2SAT 97
[2022-02-25] MEDS: predniSONE 20 MG TABLET 40 MG PO (07:47)
[2022-02-25] MEDS: 0.9 % Sodium Chloride Flush 3 ML SYRINGE IVFLUSH (07:47)
[2022-02-25] MEDS: Cholecalciferol (Vitamin D3) 25 MCG TABLET PO (07:48)
[2022-02-25 09:26] LABS: Hematocrit 34.4 % (37.0-47.0); Hemoglobin 11.4 g/dl (12.0-16.0); Mean Corpuscular HGB Conc 33.1 g/dl (31.0-35.0); Mean Corpuscular Hemoglobin 26.1 pg (27.0-33.0); Mean Corpuscular Volume 78.7 fL (80.0-98.0); Mean Platelet Volume 8.8 fL (9.4-12.3); Platelet Count 455 X10*3/uL (160-400); Red Blood Count 4.37 X10*6/uL (4.20-5.50); White Blood Count 16.7 X10*3/uL (4.8-10.8)
--- NOTE | 2022-02-25 10:02 | PM.DS ---
DS: Providers Provider Date of Service: 02/25/22 Date of admission: 02/23/22 14:07 Date of discharge: 02/25/22 Primary care physician: Nonstaff Physician Consults: 02/23/22 12:32 Consult to Gastroenterology Stat Consulting Provider: [facility] Reason for consultation: crohns, colitis Attending physician on discharge: Sarwat Jenkins Discharging clinician: Debra Ng DS: Diagnosis Discharge Diagnosis (1) Pyelonephritis: Status: Acute (2) Crohn's disease: Status: Acute DS: Summary Hospital Course Hospital Course: From H&P on day of admission 31-year-old woman with a history of Crohn's disease presenting to the ER with left-sided flank pain that started suddenly this morning.? She reported poor appetite with no nausea, vomiting, fever, chills.? She was recently in [facility] in February of 2022 for perianal fistula/ abscess repair for [facility] placement.? She denies any changes in her? Crohn's at present.? From what she describes she had been on Remicade for 10 years and was in remission but developed antibodies and had to be taken off of it once she developed a fistula.? She recently was started on Stelara but has not completed treatments.? Her symptoms described left-sided flank pain and few days ago was having some dysuria.? She reports due to the fistula she is doing a lot of Sitz baths and maybe there has been some cross contamination. .? In the ER she is noted to have an elevated white blood cell count of 18.3, positive urinalysis, COVID negative, abdominal and pelvic CT showing her Crohn's disease with chronic stones, vital signs. She was given IV fluids, morphine, Zofran, Dilaudid, Flagyl, Levaquin in the ER.? To be admitted for further management and treatment of acute pyelonephritis. Pyelonephritis. Patient was admitted to the hospital with left flank pain with associated dysuria. CT scan did not show any acute changes. She was started on IV antibiotics. Urine culture did not grow any bacteria, this is likely due to antibiotic use prior to hospitalization. She was taking Augmentin prior to hospitalization and should complete course. Leukocytosis is likely due to chronic steroid use and has started trending down, she has remained afebrile. Blood cultures have remained negative to date Crohn's disease. CT scan showed active flare. 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 She did not report any new symptoms. Time Spent with Patient Time attestation: Total time spent providing and/or coordinating discharge services: Discharge coordination time: Greater than 30 minutes Quality: Safe Use of Opioids Does Pt have an Active Cancer Diagnosis on the Problem List?: No Quality: Stroke Does the patient have a stroke diagnosis?: No Physical Exam Vital Signs: Vital Signs: Last Vital Signs Temp 97.7 F 02/25/22 07:22 Pulse 82 02/25/22 07:22 Resp 18 02/25/22 07:22 BP 120/69 02/25/22 07:22 Pulse Ox 97 02/25/22 07:22 O2 Del Method 02/25/22 07:22 BMI result Body Mass Index 18.3 Const: General: cooperative, comfortable, alert and awake Nutritional Appearance: average body habitus Orientation/consciousness: patient oriented x3 Resp: Effort & Inspection: normal respiratory effort and able to speak in complete sentences Auscultation: clear to auscultation bilaterally Cardio: Rate: regular rate Heart sounds: S1 normal heart sound present and S2 normal heart sound present GI: Inspection: No distended Palpation (GI): Soft to palpation Neuro: General: patient oriented x3 Extrem: General: Yes no pedal edema DS: Data Data Completed and Pending Labs on day of discharge: Laboratory Results - last 24 hr 02/25/22 09:07 WBC 16.7 H RBC 4.37 Hgb 11.4 L Hct 34.4 L MCV 78.7 L MCH 26.1 L MCHC 33.1 RDW 15.0 Plt Count 455 H MPV 8.8 L Absolute Nucleated RBC 0.000 Nucleated RBC % (auto) 0.0 Preliminary micro results at discharge 02/23/22 12:18 Blood Culture - Preliminary Blood - Venous No growth after 24 hours. 02/23/22 12:07 Blood Culture - Preliminary Blood - Venous No growth after 24 hours. Discharge Plan Discharge Patient Disposition: Home, Self-Care Discharge Diagnosis: Pyelonephritis Referrals: Physician,Nonstaff [Primary Care Provider] - 1 Week Discharge Medications: New oxycodone 5 mg tablet 5 mg PO Q6H PRN (Reason: pain, severe) Qty: 8 0RF Rx Instructions: Partial Fill upon patient request. Continued levonorgestrel-ethinyl estrad [Sronyx] 0.1-20 mg-mcg tablet 1 tab PO DAILY prednisone 20 mg tablet 2 tab PO DAILY pantoprazole 40 mg tablet,delayed release (DR/EC) 1 tab PO DAILY amoxicillin-pot clavulanate 875-125 mg tablet 1 tab PO BID oxycodone 5 mg tablet 1 tab PO Q4-6H PRN (Reason: pain) calcium carbonate-vitamin D3 [Calcium 500 + D] 500 mg-10 mcg (400 unit) Tablet 6 tab PO DAILY Stelara 90 mg/mL syringe 90 mg subcut Q4W docusate sodium 100 mg Tablet 100 mg PO DAILY PRN (Reason: Constipation) Discharge Orders: Discharge Order (Routine); Ordered 02/25/22 Ordered By: Debra Ng Activity on Discharge: As tolerated Stand Alone Forms: Patient Portal Discharge page Print Language: [place]uran Care Plan Goals: See below Health Concerns: Pyelonephritis Crohn's disease Plan of Treatment: Complete course of Augmentin they were taking at home prior to admission Continue to follow-up in [facility] Clinic for further management of Crohn's disease Assessment: See discharge summary Discharge Date/Time: 02/25/22 12:10
--- NOTE | 2022-02-25 11:04 | MHC.CM.PN ---
PT DISCHARGED HOME TODAY WITH NO SERVICES
[2022-02-25 11:15] VITALS: BP 112/66; PULSE 77; RESP 18; TEMP 36.1; O2SAT 97
--- NOTE | 2022-02-25 11:21 | MHC.CM.PN ---
Addendum entered by Karina Barry 02/25/22 12:08: Pt reports she lives with her aunt, Kira. She does not receive any home services or DME. Covid vaccinated. Pt does not have a PCP at this time, plans on calling [facility] to request appointment. Pt's family will transport home. Pt does not have HCP on file, CM will work with pt and complete. Discharge Plan: Home without services/Self-Care Original Note: HCP completed with pt; original and copies given to pt, copy in chart and uploaded to [facility].
--- NOTE | 2022-02-25 12:21 | PC.NURSE ---
Alert and oriented. C/O pain at the start of the shift, medicated per MAR with good effect. VSS, afebrile, no acute resp. distress noted. New order to discharge patient home. went over discharge instructions, medication administrations and follow up apt with patient, verbalized understanding back. Patient declined w/c services. Ambulated independently to the lobby, left via [employer].
== END 2022-02-25 12:10 | disposition home or self-care (01) | DRG 245 ==
LOC: HO.ED 13:44 → HO.EDOVER 14:42 → HO.S3 02-24 12:53
PROVIDERS: Physician Assistant Medical; Admitting Provider Nurse Practitioner Acute Care; Emergency Provider Emergency Medicine; Responsible Provider Physician Assistant Medical; Visit Provider Hospitalist
DX: K50.90 Crohn's disease, unspecified, without complications (principal); N10 Acute pyelonephritis; N20.0 Calculus of kidney; Z87.442 Personal history of urinary calculi; Z20.822 Contact with and (suspected) exposure to COVID-19; Z87.891 Personal history of nicotine dependence; Z88.6 Allergy status to analgesic agent; Z79.3 Long term (current) use of hormonal contraceptives; Z79.52 Long term (current) use of systemic steroids; Z79.899 Other long term (current) drug therapy
CPT/HCPCS: 36415; 74176; 80048; 80053; 81001; 83605; 83735; 84702; 85025; 85027; 87040; 87086; 87635; 96361; 96365; 96375; 99218; 99285; J0696; J1170; J1956; J2270; J2405

== ENCOUNTER 2022-07-25 15:28 | Outpatient (REF) | payer OTHER, SELFPAY | END 2022-07-25 15:29 | disposition home or self-care (01) | LOC: HO.LAB 15:28 | PROVIDERS: PCP Nurse Practitioner Family; Visit Provider Internal Medicine Gastroenterology | DX: Z13.89 Encounter for screening for other disorder (principal) ==